=== PATIENT | female | born 1945 | race Caucasian/White ===

== ENCOUNTER 2018-12-11 14:42 | Inpatient (IN) | payer MEDICARE ==
[~2018-12-11] VITALS: Ht 162.6 cm; Wt 122.0 kg
[2018-12-11 14:50] VITALS: BP_SYST 114; BP_SYST 137; BP_DIAS 63; BP_DIAS 78
--- NOTE | 2018-12-11 14:50 | NUR ---
PT TRIAGED AND SENT TO ER LOBBY. VSS. EDMD AWARE OF PT STATUS.
--- NOTE | 2018-12-11 14:50 | NUR ---
Alvin rutledge in ED - 12/11/18 at 1926 by ANGEL PT ON BED IN SUPINE POSITION EYES OPEN, A/OX4, PLACED ON FULL MONITOR, BED IN LOW POSITION. NO REQUESTS AT THIS TIME.
--- NOTE | 2018-12-11 14:55 | NUR ---
PT ON BED IN SUPINE POSITION EYES OPEN, A/OX4, PLACED ON FULL MONITOR, BED IN LOW POSITION. NO REQUESTS AT THIS TIME.
--- NOTE | 2018-12-11 14:55 | NUR ---
PT BIB SON C/O HEMATOMA TO L HEAD S/P MECHANICAL TRIP AND FALL FROM STANDING YESTERDAY. A/OX4, GCS 15, PUPILS PERRLA 2MM. MARSHALL, FULL CLEAR SPEECH AT THIS TIME.
--- NOTE | 2018-12-11 14:55 | NUR ---
PT AMBULATED TO BED 5
[2018-12-11] MEDS ORDERED: ACET-787 PO (15:41)
[2018-12-11] MEDS ORDERED: MEMA10TA PO (15:41)
[2018-12-11] MEDS ORDERED: TRA200 PO (15:41)
[2018-12-11] MEDS ORDERED: PRAV20TA2 PO (15:41)
--- NOTE | 2018-12-11 16:11 | NUR ---
PT AMBULATED WITH STEADY GAIT TO THE BATHROOM
[2018-12-11] MEDS ORDERED: NACL 0.9% 1,000 ML IV ONE (16:13)
[2018-12-11] MEDS ORDERED: ONDANSETRON 4 MG/2 ML VIAL IVP ONE (16:15)
[2018-12-11] MEDS ORDERED: DEXAMETHASONE 10 MG/ML VIAL IVP ONE (16:15)
[2018-12-11] MEDS ORDERED: FAMOTIDINE 20 MG/2 ML VIAL IVP ONE (16:15)
[2018-12-11] MEDS ORDERED: MORPHINE SULFATE 2 MG/ML SYR IVP ONE (16:15)
--- NOTE | 2018-12-11 16:17 | NUR ---
PT PROVIDED URINE.
[2018-12-11 16:49] LABS: BASOPHILS # (AUTO) 0.1 K/uL (0.00-0.22); EOSINOPHILS # (AUTO) 0.1 K/uL (0-0.4); HEMATOCRIT 40.8 % (36-48); HEMOGLOBIN 13.2 g/dL (12.0-16.0); LYMPHOCYTES # (AUTO) 1.8 K/uL (2.5-16.5); LYMPHOCYTES % (AUTO) 24.4 % (20.5-51.1); MEAN CORPUSCULAR HEMOGLOBIN 30 pg (27-31); MEAN CORPUSCULAR HGB CONC 32 g/dL (33-37); MEAN CORPUSCULAR VOLUME 93.7 fL (80-94); MONOCYTES # (AUTO) 0.6 K/uL (0.8-1.0); MONOCYTES % (AUTO) 7.8 % (1.7-9.3); NEUTROPHILS # (AUTO) 4.7 K/uL (1.8-7.7); NEUTROPHILS % (AUTO) 64.8 % (42.2-75.2); PLATELET COUNT (AUTO) 196 K/uL (140-450); RED BLOOD CELL COUNT(AUTO) 4.36 MIL/uL (4.20-5.40); RED CELL DISTRIBUTION WIDTH 14.1 % (11.6-13.7); WHITE BLOOD COUNT (AUTO) 7.3 K/uL (4.8-10.8)
--- NOTE | 2018-12-11 16:55 | NUR ---
PT BEING TAKEN TO CT AT THIS TIME.
[2018-12-11 17:03] LABS: APPEARANCE,URINE CLEAR (CLEAR); BILIRUBIN,URINE NEGATIVE (NEGATIVE); BLOOD, URINE 1+ (NEGATIVE); COLOR,URINE YELLOW (YELLOW); LEUKOCYTE ESTERASE ,URINE NEGATIVE (NEGATIVE); NITRITE, URINE NEGATIVE (NEGATIVE); UGLUCOSE NEGATIVE (NEGATIVE)
[2018-12-11 17:04] LABS: RBC,URINE 11-20 (MOD) /HPF (0-5); WBC,URINE 0-5 (RARE) /HPF (0-5)
[2018-12-11 17:07] LABS: ANION GAP 10.8 (8-16); CARBON DIOXIDE 29.7 mmol/L (21-32); CHLORIDE 105 mmol/L (98-107); CREATININE 0.8 mg/dL (0.6-1.3); GLUCOSE 83 mg/dL (74-106); POTASSIUM 3.5 mmol/L (3.5-5.1); SODIUM SERUM 142 mmol/L (136-145); UREA NITROGEN, BLOOD 17 mg/dL (7-18)
[2018-12-11 17:13] LABS: ALBUMIN 3.7 g/dL (3.4-5.0); ASPARTATE AMINOTRANSFERASE 13 U/L (15-37); MAGNESIUM 2.3 mg/dL (1.8-2.4); TOTAL BILIRUBIN 0.5 mg/dL (0.0-1.0)
[2018-12-11 17:44] LABS: PROTHROMBIN TIME 9.1 secs (10.8-13.4)
--- NOTE | 2018-12-11 18:22 | NUR ---
PT RESTING IN RELAXED POSITON AT THIS TIME, SMILING, HANDS CROSSED, FEET UNCROSSED. FAMILY AT BEDSIDE. NO S/S OF DISTRESS NOTED.
[2018-12-11] MEDS ORDERED: ACETAMINOPHEN 325 MG TAB PO PRN (18:50)
[2018-12-11] MEDS ORDERED: NACL 0.9% 1,000 ML IV SCH (18:50)
[2018-12-11] MEDS ORDERED: DOCUSATE SODIUM 100 MG GELCAP PO PRN (18:50)
[2018-12-11] MEDS ORDERED: ONDANSETRON 4 MG/2 ML VIAL IM/IVP PRN (18:50)
[2018-12-11] MEDS ORDERED: MORPHINE SULFATE 2 MG/ML SYR IVP PRN (18:50)
[2018-12-11] MEDS ORDERED: HYDROcodone/APAP 5/325 MG 1 TAB TAB PO PRN (18:50)
[2018-12-11] MEDS ORDERED: ALBUTEROL SULFATE/IPRATROPIU 3 ML SOL IH PRN (19:05)
[2018-12-11 19:22] LABS: BARBITURATE, URINE NEG. ng/ml (NEG <=200); BENZODIAZEPINE, URINE NEG. ng/mL (NEG <=200); CANNABINOID, URINE NEG. ng/mL (NEG <=50); COCAINE, URINE NEG. ng/mL (NEG <=300); OPIATE, URINE POS. ng/mL (NEG <=2000); PHENCYCLIDINE SCREEN,URINE NEG. ng/mL (NEG <=25)
[2018-12-11 19:28] LABS: CHOL/HDL RATIO 3.8 (1-4.5); MAGNESIUM 2.3 mg/dL (1.8-2.4); PHOSPHORUS 3.2 mg/dL (2.5-4.9); THYROID STIMULATING HORMONE 2.04 uIU/mL (0.34-3.74)
--- NOTE | 2018-12-11 19:40 | NUR ---
PATIENT ARRIVED IN UNIT VIA GURNEY, ACCOMPANIED BY TRIMMING MACHINE OPERATOR AND . PATIENT A/Ox2, CONFUSED, AMBULATORY. CHIEF COMPLAINT OF FALL AT HOME. DX - SYNCOPE. HX OF HTN, LEFT BREAST MASTECTOMY, CARPAL TUNNEL SYNDROME, OOPHORECTOMY. PATIENT ORIENTED TO ROOM, UPDATED BOARD. VITAL SIGNS UPON ADMISSION INTO THE UNIT WERE: BP 155/76, RR 16, HR 76, TEMP 98.1, O2Sat 97% ON ROOM AIR. IV ON RIGHT ANTECUBITAL INTACT, NO S/SX OF REDNESS OR INFECTION NOTED. BED IN THE LOWEST POSITION, CALL LIGHT WITHIN REACH. INITIAL ASSESSMENT DONE. WILL CONTINUE TO MONITOR.
--- NOTE | 2018-12-11 19:49 | NUR ---
Patient will be admitted to care of Dr Oden. Admited to tele via gurney with VSS. Will go to room 105B. Belongings list completed. Report to Patti FISHMAN.
[2018-12-11] MEDS ORDERED: NITROGLYCERIN 0.4 MG TAB SL PRN (19:50)
[2018-12-11] MEDS ORDERED: MEMANTINE 10 MG TAB PO SCH (21:00)
[2018-12-11] MEDS ORDERED: PIPER/TAZO 3.375GM/D5W PREMIX 50 ML IV SCH (21:00)
[2018-12-11] MEDS ORDERED: METOPROLOL 25 MG TAB PO SCH (21:00)
--- NOTE | 2018-12-11 21:40 | NUR ---
ROUNDS DONE, PATIENT LAYING IN BED, AWAKE.
[2018-12-11] MEDS ORDERED: PIPERACILLIN/TAZOBACTAM 3.375 GM VIAL IV ONE (21:51)
[2018-12-12] VITALS: BP 157/81
--- NOTE | 2018-12-12 00:10 | NUR ---
IV SITE ON RIGHT ANTECUBITAL PULLED OUT BY PATIENT, TIP INTACT. IV REINSERTED ON RIGHT HAND, 22 GAUGE, INTACT, PATENT AND FLUSHED.
--- NOTE | 2018-12-12 01:40 | NUR ---
PATIENT REMOVED IV, FOUND TIP INTACT. STATES SHE WANTS TO GO HOME. PATIENT MADE AWARE AGAINST AMA; RISKS EXPLAINED TO PATIENT AND SUGGEST CALLING HER . IS CALLED, MADE AWARE OF PATIENT WANTING TO LEAVE HOSPITAL AMA, STATED HE WILL BE AT THE HOSPITAL IN LESS THAN 30 MINUTES. CHARGE NURSE FELIX AND DR. CHEEMA MADE AWARE OF PATIENT WANTING TO LEAVE HOSPITAL AMA. DR CHEEMA ADVISES PATIENT ON RISKS OF LEAVING AMA, PATIENT STILL INSISTS LEAVING HOSPITAL. WILL CONTINUE TO MONITOR.
--- NOTE | 2018-12-12 01:55 | NUR ---
PATIENT'S SALLY ARRIVES INTO UNIT, SPEAKS WITH PATIENT AND ADVISES NOT TO LEAVE HOSPITAL. PATIENT INSISTS ON LEAVING HOSPITAL AGAINST MEDICAL ADVICE, AGREES AND WANTS PATIENT TO LEAVE HOSPITAL. DR. CHEEMA AND CHARGE NURSE FELIX MADE AWARE OF DECISION, MADE AND PATIENT AWARE OF RISKS LEAVING AGAINST MEDICAL ADVICE. PATIENT STILL INSISTS ON LEAVING AMA.
--- NOTE | 2018-12-12 02:15 | NUR ---
PATIENT DECLINES SIGNING AMA WAIVER; DR. CHEEMA AND CHARGE NURSE FELIX MADE AWARE. DR. CHEEMA AND CHARGE NURSE FELIX HAS SIGN AMA WAIVER SINCE PATIENT IS A/Ox1 AND CONFUSED.
--- NOTE | 2018-12-12 02:40 | NUR ---
PATIENT AND LEAVE UNIT. PATIENT AMBULATORY, DOES NOT WANT TO GO IN A WHEELCHAIR.
[2018-12-12] MEDS ORDERED: LABETALOL 200 MG TAB PO SCH (09:00)
[2018-12-12] MEDS ORDERED: LISINOPRIL 10 MG TAB PO SCH (09:00)
[2018-12-12] MEDS ORDERED: ASPIRIN 81 MG TAB.CHEW PO SCH (09:00)
[2018-12-29 15:08] LABS: T4 (THYROXINE) 5.8 ug/dL (4.5-12.0)
== END 2018-12-12 02:40 | disposition left against medical advice (07) | DRG 177 ==
LOC: MED 14:42 → MTU 18:50
PROVIDERS: ADMIT General Practice; ATTEND General Practice
DX: J69.0 Pneumonitis due to inhalation of food and vomit (principal); G93.41 Metabolic encephalopathy; I24.9 Acute ischemic heart disease, unspecified; Z68.42 Body mass index [BMI] 45.0-49.9, adult; W01.0XXA Fall on same level from slipping, tripping and stumbling without subsequent striking against object, initial encounter; J45.909 Unspecified asthma, uncomplicated; I10 Essential (primary) hypertension; R51 Headache; S00.03XA Contusion of scalp, initial encounter; G30.9 Alzheimer's disease, unspecified; F02.80 Dementia in other diseases classified elsewhere, unspecified severity, without behavioral disturbance, psychotic disturbance, mood disturbance, and anxiety; E78.5 Hyperlipidemia, unspecified; M47.812 Spondylosis without myelopathy or radiculopathy, cervical region; E66.01 Morbid (severe) obesity due to excess calories; Z53.21 Procedure and treatment not carried out due to patient leaving prior to being seen by health care provider; M94.0 Chondrocostal junction syndrome [Tietze]; K21.9 Gastro-esophageal reflux disease without esophagitis; Y93.89 Activity, other specified; Y92.89 Other specified places as the place of occurrence of the external cause; Y99.8 Other external cause status; Z79.899 Other long term (current) drug therapy; Z85.3 Personal history of malignant neoplasm of breast; Z90.12 Acquired absence of left breast and nipple; Z90.710 Acquired absence of both cervix and uterus; Z87.891 Personal history of nicotine dependence
CPT/HCPCS: 36415; 70450; 71045; 72125; 80053; 80305; 81001; 82150; 82550; 83036; 83690; 83735; 83880; 84100; 84436; 84443; 84484; 85025; 85610; 85730; 87081; 93005; 93880; 96374; 96375; 99285; J1100; J2270; J2405; J2543; J3490; J7030; J7060; Q0092